=== PATIENT | female | born 1970 | race Caucasian/White ===

== ENCOUNTER 2017-05-13 12:43 | Emergency (ER) | payer MEDICAID | END 2017-05-13 14:14 | disposition home or self-care (01) | LOC: D.ER 12:43 | DX: H66.91 Otitis media, unspecified, right ear (principal); H92.01 Otalgia, right ear; K04.7 Periapical abscess without sinus; F17.200 Nicotine dependence, unspecified, uncomplicated ==

== ENCOUNTER 2017-06-14 08:20 | Emergency (ER) | payer MEDICAID ==
[2017-06-14 09:12] LABS: BASOPHILS 0.2 % (0-2); EOSINOPHILS 2.9 % (0-7); HEMATOCRIT 40.4 % (36.0-48.0); HEMOGLOBIN 13.5 g/dL (12-16); IMMATURE GRANULOCYTES 0.6 % (0-5); LYMPHOCYTES 36.5 % (15-50); MCH 29.9 pg (26.0-34.0); MCHC 33.4 g/dL (31.0-37.0); MCV 89.6 fL (80.0-100.0); MONOCYTES 10.7 % (2-11); NEUTROPHILS 49.1 % (40-80); RBC 4.51 10x6/uL (4.00-5.40); WBC 8.9 10x3/uL (4.8-10.8)
[2017-06-14 09:14] LABS: PLATELET COUNT 325 10x3/uL (130-400)
[2017-06-14 09:17] LABS: ALBUMIN 3.1 g/dL (3.4-5.0); ALKALINE PHOSPHATASE 146 U/L (46-116); ALT (SGPT) 19 U/L (10-68); CALC OSMOLALITY 265 mosm/kg (275-300); CALCIUM 8.8 mg/dL (8.5-10.1); CARBON DIOXIDE 23.6 mmol/L (21.0-32.0); CHLORIDE - SERUM 102 mmol/L (98-107); CREATININE - SERUM 0.6 mg/dL (0.6-1.3); GLUCOSE 86 mg/dL (74-106); POTASSIUM - SERUM 4.6 mmol/L (3.5-5.1); SODIUM 133 mmol/L (136-145); UREA NITROGEN 16 mg/dL (7-18); eGFR NON AFRICAN AMERICAN > 90 mL/min (90-120)
[2017-06-14 09:21] LABS: BILIRUBIN - TOTAL 0.07 mg/dL (0.2-1.3)
[2017-06-14 09:38] LABS: CHOL - HDL RATIO 2.8 ratio (2.3-4.1); CHOLESTEROL, TOTAL 132 mg/dL (0-200); CKMB 2.5 U/L (0.0-3.6); CREATINE KINASE 65 UL (21-215); HDL CHOLESTEROL 47 mg/dL (32-96); LDL CHOLESTEROL 65 mg/dL (0-100); LDL-HDL RATIO 1.4 ratio (1.5-3.5); PRO BNP 14 pg/mL (0-125); TRIGLYCERIDE 100 mg/dL (30-200)
[2017-06-14 09:58] LABS: TROPONIN-I < 0.017 ng/mL (0.000-0.060)
[2017-06-14 10:30] LABS: APPEARANCE CLEAR (CLEAR); BILIRUBIN NEGATIVE (NEGATIVE); COLOR STRAW (YELLOW); GLUCOSE NEGATIVE (NEGATIVE); KETONE NEGATIVE (NEGATIVE); NITRITE NEGATIVE (NEGATIVE); PROTEIN NEGATIVE (NEGATIVE); SPECIFIC GRAVITY 1.005 (1.005-1.020); UROBILINOGEN NORMAL (NORMAL)
[2017-06-14 10:43] LABS: UDS - AMPHET POSITIVE QUAL (NEGATIVE); UDS - BARB NEGATIVE QUAL (NEGATIVE); UDS - BENZO NEGATIVE QUAL (NEGATIVE); UDS - COCAINE NEGATIVE QUAL (NEGATIVE); UDS - OPIATE NEGATIVE QUAL (NEGATIVE); UDS - PCP NEGATIVE QUAL (NEGATIVE); UDS - THC NEGATIVE QUAL (NEGATIVE)
== END 2017-06-14 10:54 | disposition home or self-care (01) ==
LOC: D.ER 08:20
PROVIDERS: Family Medicine
DX: J20.9 Acute bronchitis, unspecified (principal); J98.01 Acute bronchospasm

== ENCOUNTER 2017-11-25 15:56 | Emergency (ER) | payer MEDICAID ==
[~2017-11-25] VITALS: Ht 165.1 cm; Wt 97.5 kg
[2017-11-25 16:15] VITALS: Ht 165.1 cm; Wt 97.5 kg
[2017-11-25] MEDS ORDERED: ACETAMINOPHEN325 MG PO (16:18)
[2017-11-25] MEDS ORDERED: PROAIR HFA8.5 GM INH (16:19)
[2017-11-25] MEDS ORDERED: VOLTAREN75 MG PO (17:05)
[2017-11-25] MEDS ORDERED: AMOXICILLIN500 M1 PO (17:05)
[2017-11-25 17:50] VITALS: BP 128/78
== END 2017-11-25 17:39 | disposition home or self-care (01) ==
LOC: D.ER 15:56
DX: K04.7 Periapical abscess without sinus (principal); K08.89 Other specified disorders of teeth and supporting structures; J44.9 Chronic obstructive pulmonary disease, unspecified; F90.9 Attention-deficit hyperactivity disorder, unspecified type; F17.200 Nicotine dependence, unspecified, uncomplicated